=== PATIENT | female | born 2005 | race African-American/Black ===

== ENCOUNTER 2023-05-24 15:16 | Emergency (ER) | payer OTHER ==
[~2023-05-24] VITALS: Ht 172.7 cm; Wt 121.0 kg
[2023-05-24] MEDS ORDERED: ACETAMINOPHEN 500 MG TAB PO ONE (17:30)
[2023-05-24 17:55] VITALS: BP 133/77; TEMP 98.7; O2SAT 100
== END 2023-05-24 17:54 | disposition home or self-care (01) ==
LOC: M ED 15:16
DX: R52 Pain, unspecified (principal); V49.40XA Driver injured in collision with unspecified motor vehicles in traffic accident, initial encounter; Y92.9 Unspecified place or not applicable